=== PATIENT | female | born 1960 | race Caucasian/White ===

== ENCOUNTER 2023-11-19 19:33 | Emergency (ER) | payer MEDICARE, BC, SELFPAY ==
[2023-11-19 19:33] VITALS: BP 129/89; PULSE 107; RESP 20; TEMP 36.1; O2SAT 95; BMI 23.4
--- NOTE | 2023-11-19 20:33 | RAD_ITS ---
STUDY: X-RAY - RIGHT WRIST REASON FOR EXAM: Female, 63 years old. injury TECHNIQUE: 3 view(s) of the wrist were obtained. COMPARISON: None. FINDINGS: There is an acute impacted comminuted fracture of the distal radius with overlapping and dorsal displacement of the distal fracture fragment.. Normal radiocarpal articulation. Normal distal radioulnar articulation. Normal carpal bones. Normal carpal articulations. Normal carpometacarpal articulation of the thumb. Normal second through fifth carpometacarpal articulations. Normal visualized metacarpal bones. Diffuse soft tissue swelling of the distal forearm. RAD/Wrist min 3 Views IMPRESSION: Acute impacted displaced fracture of the distal radius. Electronically Signed: Perry Carr MD at 21:18 EDT ,
--- NOTE | 2023-11-19 20:37 | EDS_ITS ---
HPI History of Present Illness Chief Complaint: Upper Extremity Injury Informant: patient and spouse/S.O. Narrative Narrative: [id number] female mechanical fall while mowing the lawn. Right wrist deformity. No head injuries. History of left wrist fracture in 2019 with ORIF from [facility]. She states her orthopedist has retired since then. No paresthesias. No head or neck pain. No chest or back pain. Ambulated in the department. Prior similar symptoms: Yes PFSH PFSH Medical History Hx of dislocation of shoulder Hx of fracture of wrist Home Medications ?Medication ?Instructions ?Recorded ?Last Taken ?Type cholecalciferol (vitamin D3) 50 2,000 unit PO DAILY 11/19/23 Unknown History mcg (2,000 unit) capsule venlafaxine 75 mg capsule,extended 75 mg PO DAILY 11/19/23 Unknown History release 24 hr Allergy/AdvReac Type Severity Reaction Status Date / Time No Known Allergies Allergy Verified 11/19/23 19:35 Surgical History History of lumpectomy Social History Smoking Status: Former smoker ROS ROS ED Constitutional Constitutional ED: Denies chills, fever(s) or sweats Eyes Eyes: Denies change in vision ENT ENT ED: Denies dysphagia or sore throat Cardiovascular Cardiovascular: Denies chest pain, leg edema, palpitations or racing heartbeat Respiratory/Chest Respiratory/Chest: Denies cough, dyspnea or dyspnea on exertion Gastrointestinal Gastrointestinal: Denies abdominal pain, diarrhea, nausea or vomiting Genitourinary Genitourinary ED: Denies dysuria, hematuria or urinary frequency Musculoskeletal Musculoskeletal: Reports extremity pain; Denies back pain or neck pain Integumentary Denies rash or wounds Neurologic Neurologic: Denies headache(s), paresthesias or weakness EXAM Physical Exam Const Vital Signs: 11/19/23 19:33 Temperature 97 F L Temperature Source Temporal Pulse Rate 107 H Respiratory Rate 20 H Blood Pressure 129/89 H Blood Pressure Mean 102 Pulse Ox 95 Oxygen Delivery Method Room Air Positive well nourished and well developed General Appearance ED: well developed and NAD HEENT Reports moist mucous membranes normocephalic and atraumatic Eyes EOMs intact bilaterally and conjunctivae normal General Eye ED: Yes normal appearance of both eyes Neck no lymphadenopathy and supple General: Negative for tenderness Chest Wall Chest: Negative for tenderness Resp normal respiratory effort and normal air movement Effort and Inspection: symmetric chest movement; Negative for respiratory distress Cardio regular rate, regular rhythm and no murmurs Peripheral Pulses: pulses 2+ throughout GI normal to inspection, nondistended, normoactive bowel sounds and non-tender Palpation: Negative for guarding or rebound tenderness present Back/Spine no CVA tenderness and no thoracic nor lumbar tenderness Extremity Extremity Narrative: Right upper extremity: No shoulder or elbow tenderness. Soft compartments. There is dinner fork deformity of the right wrist. Skin is intact. neuro vas intact. General Extremety ED: Yes tenderness; Negative for edema General Extremity: Negative for edema Neuro oriented x3 and no sensory deficits noted Sensorium / Orientation: awake and alert Skin no rashes or lesions noted and no wounds MDM MDM MDM Narrative Medical decision making narrative: Interventions / MDM: Differential diagnosis: Fracture Diagnosis considered but do not suspect: No clinical compartment syndrome My EKG interpretation: N/A Imaging independently reviewed and interpreted by myself: 3 view right wrist x- ray: Distal radius fracture with dorsal displacement. 2 view right wrist postreduction x-ray: Improved alignment with splinting noted. External documents reviewed: N/A Test considered but not ordered:N/A ED course: Clinical wrist fracture on exam with soft compartments. She declines any pain medications. Will send for x-ray. Will plan for fracture block with reduction. X-ray 3 views concerns for distal radius fracture with displacement dorsally. 2125: Procedure note: Fracture reduction with hematoma block. Skin was prepped with alcohol swab dorsally. 1/2 inch 27-gauge needle advanced to the fracture positive blood return. A total of 9 cc of 0.5% bupivacaine used for fracture block. Good analgesia was obtained. Reduction performed with good alignment vi sually. Nylon sleeve, Kerlix dressing with extra padding at 3 distal radius performed. 3 inch AP plaster splint was placed Jorge wrap to secure. Neurovascular intact post splinting. Patient tolerated procedure well. Post reduction films pending. Post reductions improved alignment. Sling provided. Outpatient follow-up with orthopedic service. She declines any opiate pain medicines she will use Tylenol or Motrin as needed. Re-evaluation: stable Disposition discussed with patient/family/significant other: Patient Case discussed with consulting clinician: N/A This note was generated with [employer] dictation software. It may contain incorrect words, spelling, and punctuation that were not noted in checking the note before signing. Discharge Plan Triage Chief Complaint: Upper Extremity Injury ED Provider: Eh Calhoun Dx/Rx/DC Orders Clinical Impression: Closed fracture of right wrist, Fall Instructions: ED Fracture, Wrist, General Prescriptions: No Action venlafaxine 75 mg capsule,extended release 24hr 75 mg PO DAILY cholecalciferol (vitamin D3) 50 mcg (2,000 unit) capsule 2,000 unit PO DAILY Primary Care Provider: Ashwin Oviedo Referrals: Reinaldo Olivas DO [Med Staff - Active Staff] - As soon as possible Ashwin Oviedo MD [Primary Care Provider] - Activity Restrictions/Additional Instructions: Closed distal radius fracture, appropriately reduced in the ED. Maintain your splint, sling for comfort. Call for follow-up with Dr. Olivas. Print Language: Khmer Disposition Disposition: Home, Self Care Discharge Date/Time: 11/19/23 22:09
[2023-11-19] MEDS: Bupivacaine Mpf 0.5% 30 ML VIAL INFILT (20:38)
[2023-11-19 21:33] VITALS: BP 133/88; PULSE 85; RESP 16; O2SAT 96
--- NOTE | 2023-11-19 21:40 | RAD_ITS ---
STUDY: X-RAY - RIGHT WRIST REASON FOR EXAM: Female, 63 years old. post reduction TECHNIQUE: 2 view(s) of the wrist were obtained. COMPARISON: November 19, 2023 8:29 PM FINDINGS: Status post closed reduction and casting of distal radial fracture with fracture fragments in near-anatomic alignment and position RAD/Wrist 2 Views IMPRESSION: Status post reduction and casting of distal radial fracture Electronically Signed: Perry Carr MD at 22:20 EDT ,
[2023-11-19 21:46] VITALS: BP 133/88; PULSE 85; RESP 16; TEMP 36.7; O2SAT 96
== END 2023-11-19 22:09 | disposition home or self-care (01) ==
PROVIDERS: Emergency Provider Emergency Medicine; PCP Family Medicine; Visit Provider Emergency Medicine
DX: S52.501A Unspecified fracture of the lower end of right radius, initial encounter for closed fracture (principal); Z87.891 Personal history of nicotine dependence; Y93.H9 Activity, other involving exterior property and land maintenance, building and construction; W19.XXXA Unspecified fall, initial encounter
CPT/HCPCS: 25605; 73100; 73110; 99283

== ENCOUNTER 2024-02-24 12:00 | Outpatient (RCR) | payer MEDICARE, BC, SELFPAY ==
--- NOTE | 2023-12-25 12:27 | HP.OTEVAL ---
Patient's Visit Information Visit Information Visit Information: ABBEY VIERA is a 63 year old F, referred to Occupational Therapy by Dr. Suze Gant MD, with a diagnosis of right Ulnar styloid fx, intraarticular fx lower end right radius. Date of Evaluation: 12/24/23 Occupational Therapist: Margarita Singh, MATHEW/Chey, CHT Subjective Subjective: This 63 year old female was seen for OT eval with dx of right ulnar styloid, Distal radius fx. pt states on 11/19/23 she suffered a fall while mowing her yard. pt states she underwent sx on 11/20/23. pt right handed pt is limited with all ADLs at this time. pt enjoys being outside and doing yard work. Pain right wrist/hand: Current Pain Intensity: 3 Pain Intensity Range: 2 ROM Forearm: right N left WNL Wrist: right 15/10 left 60/65 ROM Comments: right left RD 20 UD 25 Strength Senior Director Marketing: right NT left 50# Lateral Pinch: right NT left 12# Tripod Pinch: right NT left 12# Edema Wrist: right 19cm left 15cm PIP: right MF 7cm left 5.5cm Other: MCP right 19cm left 17.5cm Sensation Sensation Comments: states little of tingling tip of thumb and IF Quick DASH-Disab of Arm,Shoulder& Hand Quick DASH Score: 51.6650 Goals Goal:Daily scar massage when approriate: Yes Goal:ROM equal to unaffected hand: Yes Goal:Senior Director Marketing/Pinch strength at least 75% of unaffected hand: Yes Comment: will not initiate until Dr. cao Goal:No pain with affected hand use: Yes Goal:PIP Circumferences equal to unaffected hand: Yes Goal:Full use of affected hand in daily activities including work: Yes Goal:Decrease scar hypersensitivity: Yes Other Goal: orthosis use and precautions: pt will demo understanding of IND doffing/donning of orthosis by end of 1st session. pt will demo understanding of orthosis precautions to avoid irritation. Rehabilitation General Assessment: pt arrives 4 weeks and 5 days s/p from ORIF of right distal radius and CTR. Pt arrives today with clam shell orthosis. pt demo with edema and limited ROM. this is preventing pt form performing her ADLs and IADLs at this time. pt would benefit from skilled OT services 2x week for 8 weeks to ed. pt on dx. , healing as well as ROM and transition to light strengthening when able to return pt to her PLOF. Today therapist review dx. and initiation of her ex with her, ed. pt on need of edema control. pt demo understanding and agree to POC. Rehabilitation Potential: Good Anticipated Interventions Anticipated Interventions: A/AAROM/PROM, Strengthening, Edema Control, Modalities, Orthoses, Joint Protection/Energy Conservation, Ergonomic Education, Education re assistive Equipment, Education re Diagnosis and Home Program Visit Plan Frequency: 2-3x /Week Duration: 2 Months General Plan: 2-4 weeks cont. aggressive ROM of thumb, fingers ( MCP, PIP & DIP) forearm(gentle pron/sup) elbow & shoulder ex. doing 6x a day for 10 min sessions Edema control No wrist ROM flexion/extension, Radial/ulnar deviation 4-6 weeks post. Op May start removing orthosis for gentle wrist flexion/extension & RD/UD ( if no pain with RD/UD) Cont. all other ex for fingers, forearm elbow & shoulder May add gentle hand strengthening if needed ( if pt has full finger ROM with no pain) cont. to wear orthosis at night between ex. sessions * can start to decrease time in orthosis during day when pt. has decreased pain. 6-8 weeks post Op. If full motion start wrist strengthening Out of orthotic during day, use at night If no pain the pt has good motion -out of orthosis entirely. 8-10 weeks post op. out of orthosis entirely if not already TEXT: Thank you for the opportunity to evaluate your patient. For Medicare and Medicare HMO plans, please review the plan of care and approve it. It will need to be FAXED BACK to us at [phone] for Medicare purposes. Please let me know if there are questions or concerns regarding this plan of care. Physician Signature: Date:
--- NOTE | 2024-01-21 14:47 | OTREVAL_ITS ---
Re-Evaluation Intro: Dr. Suze Gant MD, It has been my pleasure to treat ABBEY VIERA over the last 9 visits for right Ulnar styloid fx, intraarticular fx lower end right radius. Please see the progress note below for an update on the occupational therapy plan of care! Subjective Subjective: pt arrives to session 8 weeks 5 days s/p from ORIF of distal radius inter articular fx - carry laundry - washing dishes- windows- folding cloths. - pt states she is IND with ADLs. No pain some discomfort for a second. Objective Objective/Function: wrist ROM 40/40 increase better 20/25 supination 50* pronation 70* RD 15* UD 20* right paper wrapping machine operator strength 20# left is 50# Pt has been working hard on her ROM and has made good gains- she still struggles with limited supination but doing well. paper wrapping machine operator functional for squeeze a sponge or washcloth. pt is using 1# wts for shoulder and biceps ex. pt has been in and out of her splint while home using at night mostly or when she is out of house or doing heavy cleaning tasks- pt notices some swelling after cleaning but will put ice on it and swelling goes down. pt continues to ask what she can lift therapy has her on 1-3# limit until clears with x-ray to lift more than this. pt communicates understanding Plan Plan Frequency: 1-2x /Week Duration: 3 Weeks Plan: 6-8 weeks post Op. If full motion start wrist strengthening Out of orthotic during day, use at night If no pain the pt has good motion -out of orthosis entirely. 8-10 weeks post op. out of orthosis entirely if not already Goals Goals Patient Goals: Regain Mobility, Use Hand/Wrist/Arm Normally Again and Resume Former Household Responsibilities (Cooking,Cleaning,Yard, etc.) Goal:Daily scar massage when approriate: Yes Goal:ROM equal to unaffected hand: Yes Goal:General Car Supervisor Yard/Pinch strength at least 75% of unaffected hand: Yes Goal:No pain with affected hand use: Yes Goal:PIP Circumferences equal to unaffected hand: Yes Goal:Full use of affected hand in daily activities including work: Yes Goal:Decrease scar hypersensitivity: Yes Other Goal: orthosis use and precautions: pt will demo understanding of IND doffing/donning of orthosis by end of 1st session. pt will demo understanding of orthosis precautions to avoid irritation. Anticipated Interventions Anticipated Interventions Anticipated Interventions: A/AAROM/PROM, Strengthening, Edema Control, Modalities, Orthoses, Joint Protection/Energy Conservation, Ergonomic Education, Education re assistive Equipment, Education re Diagnosis and Home Program Re-Evaluation Ending Re-evaluation ending: Please do not hesitate to contact me at [phone] by phone or if you have questions or concerns regarding this new plan of care! Sincerely, Margarita Singh, OTR/L, CHT
--- NOTE | 2024-02-24 12:24 | HP.OT.NRP ---
Patient Information Patient Information: ABBEY VIERA was seen in my office for initial evaluation on 12/24/23. The following Plan of Care was established for this patient: POC Established Initial Frequency: 1-2x /Week Initial Duration: 3 Weeks Plan: discharge from OT at this time Anticipated Interventions Anticipated Interventions: A/AAROM/PROM, Strengthening, Edema Control, Modalities, Orthoses, Joint Protection/Energy Conservation, Ergonomic Education, Education re assistive Equipment, Education re Diagnosis and Home Program Last Seen Last Seen: This patient was last seen in our office 02/24/24. Pertinent comments regarding their Occupational therapy will appear below: Completed course of therapy. Patient presents with functional use of right UE, no pain, and independent with HEP. Discharge from OT at this time. At this point I will be discontinuing this patient from occupational therapy. I would be happy to see this patient again in the future if found appropriate by the physician. Thank you! Emily Cooper
== END 2024-02-24 19:00 | disposition home or self-care (01) ==
LOC: OT 12:00
PROVIDERS: PCP Family Medicine; Referring Provider Orthopaedic Surgery Hand Surgery; Visit Provider Orthopaedic Surgery Hand Surgery
DX: S52.611D Displaced fracture of right ulna styloid process, subsequent encounter for closed fracture with routine healing (principal); S52.571D Other intraarticular fracture of lower end of right radius, subsequent encounter for closed fracture with routine healing
CPT/HCPCS: 97110; 97140; 97166; 97530